=== PATIENT | male | born 1970 | race Caucasian/White ===

== ENCOUNTER 2017-08-16 06:19 | Observation (INO) | payer BC ==
[~2017-08-16] VITALS: Ht 180.3 cm; Wt 94.4 kg
[~2017-08-16 06:19] MED LIST: EZET1TAB8 PO; FLUO0.0124 EACH EAR; FLUT50SP EACH NARE; SIMV40TA PO
[2017-08-16] MEDS ORDERED: AMPICILLIN/SULBAC 3 GM/NS 100 ML IV PRN ×2 (06:45)
[2017-08-16] MEDS ORDERED: LACTATED RINGER'S 1000 ML IV PRN (06:45)
[2017-08-16] MEDS ORDERED: SODIUM CHLORID 0.9% 500 ML IV PRN (06:45)
[2017-08-16] MEDS ORDERED: CHLORHEXIDINE GLUCONATE 2 % 1 PACK (2 CLOTHS) TOPICAL PRN (06:45)
[2017-08-16] MEDS ORDERED: POVIDONE IODINE 5% (ANTISEPSIS KIT) 4 APPLICATIONS EACH NARE PRN (06:45)
[2017-08-16] MEDS ORDERED: METOPROLOL TARTRATE 25 MG TAB PO PRN (06:45)
[2017-08-16] MEDS ORDERED: LIDOCAINE 1%/EPINEPHrine 1:100,000 SOLN 20 ML VIAL ONE (07:10)
[2017-08-16] MEDS ORDERED: OXYMETAZOLINE HCL 0.05% 15 ML NASAL SPRAY ONE (07:10)
[2017-08-16 09:55] VITALS: PULSE 85
[2017-08-16] MEDS ORDERED: MEPERIDINE HCL 25 MG/ML VIAL ONE (10:00)
[2017-08-16] MEDS ORDERED: HYDROmorphone HCL PF 0.5 MG/0.5 ML SYRINGE ONE (10:51)
[2017-08-16] MEDS ORDERED: ONDANSETRON HCL 4 MG/2 ML VIAL IV PUSH PRN (11:00)
[2017-08-16] MEDS: LACTATED RINGER'S 1000 ML INJ 1,000 ML IV SCH ×2 (11:45→22:23)
[2017-08-16 11:57] VITALS: O2SAT 98
[2017-08-16 12:00] VITALS: BP 174/92; PULSE 86; RESP 19; TEMP 98.2; O2SAT 96
[2017-08-16] MEDS: ACETAMINOPHEN/HYDROcodone 325 MG/5 MG TAB PO PRN ×3 (12:23→21:49)
[2017-08-16] MEDS ORDERED: ENALAPRILAT 1.25 MG/ML VIAL IV PUSH PRN (13:30)
[2017-08-16 16:00] VITALS: BP 133/79; PULSE 76; RESP 21; TEMP 97.2; O2SAT 97
[2017-08-16] MEDS: AMPICILLIN/SULBAC 3 GM/NS 100 ML IV SCH ×2 (17:00)
[2017-08-16 20:00] VITALS: BP 128/89; PULSE 95; RESP 16; TEMP 96.2; O2SAT 95
[2017-08-16] MEDS ORDERED: PRAVASTATIN SOD 80 MG TAB PO SCH (21:00)
[2017-08-17] VITALS: BP 142/89; PULSE 91; RESP 18; TEMP 97.2; O2SAT 98
[2017-08-17] MEDS: AMPICILLIN/SULBAC 3 GM/NS 100 ML IV SCH ×4 (00:30→07:04)
[2017-08-17] MEDS: ACETAMINOPHEN/HYDROcodone 325 MG/5 MG TAB PO PRN ×2 (02:14→07:02)
[2017-08-17 07:20] VITALS: O2SAT 96
[2017-08-17 07:30] VITALS: BP 142/80; PULSE 78; RESP 20; TEMP 97.1; O2SAT 96
[2017-08-17] MEDS ORDERED: EZETIMIBE 10 MG TAB PO SCH (09:00)
--- NOTE | 2017-08-19 13:43 | MP ---
cc: Kris Collazo MD DATE OF OPERATION: 08/16/2017 SURGEON: Kris Collazo MD PREOPERATIVE DIAGNOSES: 1. Nasal airway obstruction. 2. Nasal septal deviation. 3. Hypertrophy of inferior turbinates. POSTOPERATIVE DIAGNOSES: 1. Nasal airway obstruction. 2. Nasal septal deviation. 3. Hypertrophy of inferior turbinates. OPERATION PERFORMED: 1. Open repair, nasal septal fracture. 2. Bilateral submucosal resection of inferior turbinates. INDICATIONS: Documented in the history and physical. DESCRIPTION OF OPERATION: The patient was taken to OR #2 and placed in the supine position. Following induction of general anesthesia and intubation, the nose was packed bilaterally with cotton pledgets saturated in 0.05% oxymetazoline. The nasal septal mucosa was injected with a total of 6 mL of 1 percent Xylocaine with epinephrine 1:100,000 and he was then prepped and draped for surgery. A Jovany incision was made in the left nasal vestibule and through this incision, the mucosa of the septum was elevated on the left side, as far as the junction of the bony and cartilaginous septum. Following this, a [id number] incision through the quadrangular cartilage was made, this was 1 cm posterior to the anterior nasal spine. Through this incision, the opposite side mucosa was elevated to the junction of the bony and cartilaginous septum. This gave a view of the quadrangular cartilage. There was evidence of previous attempt at septoplasty with the majority of quadrangular cartilage remaining intact. There was evidence of old fracture with fragments extending into the nasal airway bilaterally. A cumulative area of 2 x 2.5 cm was removed preserving 1.5 cm dorsal and caudal cartilaginous struts. When this was completed, the mucosa was elevated from the bony septum and the maxillary crest. These were removed using Hitesh-Kala forceps. Incision was then closed with a running suture of 4-0 chromic and the mucosal layers of septum were approximated to each other with a quilting stitch of 4-0 plain gut. The inferior turbinates were addressed next. They were fractured out medially and stab incision was made on the inferior surfaces. Through these incisions, submucosal soft tissue was reduced using a curette and preserving the conchal bone. Incision was then cauterized using the suction Bovie at 35 calix. The remnants of the inferior turbinates were then returned to the lateral nasal wall using a Jovany speculum. The nose was packed with Merocel tampons coated in bacitracin ointment and the procedure was terminated. The patient was reversed from anesthesia and taken to recovery in good condition. There were no complications. Blood loss was 100 mL. MD CUAUHTEMOC Vargas/CHARI , 01:01 PM , 01:43 PM
== END 2017-08-17 08:19 | disposition home or self-care (01) ==
LOC: PHSDC 06:19 → PH3A 11:38
PROVIDERS: ADMIT Otolaryngology; ATTEND Otolaryngology
DX: J34.89 Other specified disorders of nose and nasal sinuses (principal); J34.2 Deviated nasal septum; J34.3 Hypertrophy of nasal turbinates
CPT/HCPCS: 00160; 21335; 30140; 94762; 96361; 96365; G0378; J0295; J1170; J2175; J3010; J7120